=== PATIENT | female | born 1960 | race Caucasian/White ===

== ENCOUNTER 2017-07-18 10:29 | Day surgery (SDC) | payer MEDICARE, MEDICAID ==
[2017-07-18 11:22] VITALS: BMI 43.7
[2017-07-18 11:47] VITALS: RESP 14
[2017-07-18] MEDS ORDERED: Lidocaine Hydrochloride 5 ML INJ ONE (12:41)
[2017-07-18] MEDS ORDERED: Propofol 10 mg/ml Inj (20 ML) ONE (12:41)
--- NOTE | 2017-07-18 12:43 | CP.SDSHP ---
Same Day Surgery H & P - History Proposed Procedure: EGD Pre-Op Diagnosis: SEE NOTES - Previous Medical/Surgical History Pulmonary: Asthma Neuro: Other Misc: Other Pain: 4.Moderate Pain - Allergies Allergies: Allergies cortisone Allergy (Verified 07/18/17 11:23) RASH - Physical Exam General Appearance: N Vital Signs: Vital Signs 07/18/17 11:36 Temperature 97.8 F Pulse Rate 83 Respiratory 14 Rate Blood Pressure 147/85 O2 Sat by Pulse 96 Oximetry Mental Status: Alert & Oriented x3 Neuro: Other Heart: Other Lungs: WNL GI: Other - {Optional Preform as Required} Breast: WNL Abdomen: Other Rectal: Other Integument: WNL : WNL Ortho: Other ENT: WNL - Impression Pt. Evaluated Today:Candidate for Anesthesia & Procedure: Yes - Date & Time Time: 12:42 Short Stay Discharge - Short Stay Discharge Admitting Diagnosis/Reason for Visit: DYSPEPSIA Disposition: HOME/ ROUTINE
[2017-07-18] MEDS ORDERED: Belladonna-Phenobarbital PO STA (12:50)
[2017-07-18 14:02] VITALS: TEMP 98; O2SAT 99
[2017-07-18 14:45] VITALS: BP 124/65; PULSE 80
== END 2017-07-18 14:35 | disposition home or self-care (01) ==
LOC: C.ENDO 10:29
PROVIDERS: ATTEND Specialist
DX: K29.60 Other gastritis without bleeding (principal); K29.80 Duodenitis without bleeding; K44.9 Diaphragmatic hernia without obstruction or gangrene; B96.81 Helicobacter pylori [H. pylori] as the cause of diseases classified elsewhere
CPT/HCPCS: 43239; 84703; 88305; 88342; J2704

== ENCOUNTER 2017-08-08 09:40 | Day surgery (SDC) | payer MEDICARE, MEDICAID ==
[2017-08-08 10:04] VITALS: BMI 43.9
[2017-08-08] MEDS ORDERED: Propofol 10 mg/ml Inj (20 ML) ONE (10:41)
--- NOTE | 2017-08-08 10:43 | CP.SDSHP ---
Same Day Surgery H & P - History Proposed Procedure: COLONSCOPY Pre-Op Diagnosis: SEE NOTES - Previous Medical/Surgical History Cardiac: Hypertension Pulmonary: Asthma Misc: Other Pain: 4.Moderate Pain - Allergies Allergies: Allergies cortisone Allergy (Verified 07/18/17 11:23) RASH - Physical Exam General Appearance: N / PT. REPORTED TO HAVE COLONSCOPY BEFORE TEST RESULTS AND WITHOUT IT Vital Signs: Vital Signs 08/08/17 10:06 Temperature 97.1 F L Pulse Rate 76 Respiratory 18 Rate Blood Pressure 116/63 O2 Sat by Pulse 97 Oximetry Mental Status: Alert & Oriented x3 Neuro: WNL Heart: Other Lungs: WNL GI: Other - {Optional Preform as Required} Breast: WNL Abdomen: Other Rectal: Other Integument: WNL : WNL Ortho: WNL ENT: WNL - Impression Pt. Evaluated Today:Candidate for Anesthesia & Procedure: Yes - Date & Time Time: 10:43 Short Stay Discharge - Short Stay Discharge Admitting Diagnosis/Reason for Visit: RECTAL BLEEDING Disposition: HOME/ ROUTINE
[2017-08-08] MEDS ORDERED: Belladonna-Phenobarbital PO STA (10:45)
[2017-08-08 12:25] VITALS: BP 125/61; PULSE 71; RESP 12; TEMP 97.4; O2SAT 99
== END 2017-08-08 12:20 | disposition home or self-care (01) ==
LOC: C.ENDO 09:40
PROVIDERS: ATTEND Specialist
DX: K60.2 Anal fissure, unspecified (principal); K62.5 Hemorrhage of anus and rectum; K58.9 Irritable bowel syndrome, unspecified; K64.4 Residual hemorrhoidal skin tags; K64.8 Other hemorrhoids; I10 Essential (primary) hypertension; J45.909 Unspecified asthma, uncomplicated
CPT/HCPCS: 45380; 88305; J2001; J2704

== ENCOUNTER 2018-11-22 14:21 | Outpatient (CLI) | payer MEDICARE, MEDICAID | END 2018-11-22 14:22 | disposition home or self-care (01) | LOC: C.RADIC 14:21 ==

== ENCOUNTER 2019-01-10 15:09 | Outpatient (CLI) | payer MEDICARE, MEDICAID | END 2019-01-10 15:10 | disposition home or self-care (01) | LOC: C.RADIC 15:09 | DX: Z01.818 Encounter for other preprocedural examination (principal) ==